=== PATIENT | female | born 1945 | race Caucasian/White ===

== ENCOUNTER 2016-04-11 14:24 | Inpatient (IN) | payer OTHER ==
[~2016-04-11] VITALS: Ht 160 cm; Wt 67.1 kg
[~2016-04-11 14:24] MED LIST: AMLO-218 PO; ASPI-664 PO; BENA40TA41 PO; FAMO20TA18 PO; GLIP5TAB13 PO; HYDR-3498 PO; LOVA20TA PO; MTF1000T PO; ONDA4TAB35 PO; SITA100T8 PO; TERB250T46 PO
[2016-04-11] MEDS ORDERED: HYDROCODONE/APAP (5/325) TAB PO ONE (16:00)
--- NOTE | 2016-04-11 16:50 | RADRPT ---
PROCEDURE: XR Lumbar Spine. CLINICAL INDICATION: Trauma. Back pain. TECHNIQUE: Three views. AP, lateral and cone-down lateral view of the lumbar spine were obtained. COMPARISON: No prior studies are available for comparison. FINDINGS: There is normal stature of the vertebrae. There is grade 2 anterolisthesis at L5-S1 which may be acute or chronic. There is no lytic or blastic lesion. There are degenerative changes at L5-S1 with disk space narrowing and osteophytes. Vascular calcifications are present consistent with atherosclerosis. Surgical clips are present in the right upper quadrant of the abdomen. IMPRESSION: 1. Grade 2 anterolisthesis at L5-S1 which may be acute or chronic. Clinical correlation advised. 2. Degenerative changes at L5-S1. 3. Atherosclerosis. 4. Prior right upper quadrant abdomen surgery. RPTAT: QQ .Kvng Perez MD, MD Date Time Electronically viewed and signed by .Kvng Perez MD, on 04/11/2016 16:49 .R/
--- NOTE | 2016-04-11 16:50 | RADRPT ---
AMENDMENT: 04/11/2016 4:51:57 PM Kvng Perez MD Correction: There is a possible fracture of the left inferior pubic ramus. PROCEDURE: XR Femur. CLINICAL INDICATION: Trauma. Left leg pain. TECHNIQUE: AP and lateral views of the left femur were performed. COMPARISON: None. FINDINGS: There is no fracture or dislocation. The soft tissues are normal. Articular surfaces are intact. There is no lytic or blastic lesion. There is no radiopaque foreign body. IMPRESSION: 1. Normal images of the left femur. RPTAT: QQ .Kvng Perez MD, MD Date Time Electronically viewed and signed by .Kvng Perez MD, MD on 04/11/2016 16:52 .R/
--- NOTE | 2016-04-11 16:51 | RADRPT ---
PROCEDURE: XR Left Hip. CLINICAL INDICATION: Trauma. Left hip pain. TECHNIQUE: Two views. Frontal and lateral. COMPARISON: No prior studies are available for comparison. FINDINGS: There is a possible fracture of the left inferior pubic ramus. There is no other fracture and there is no dislocation. The soft tissues are normal. Articular surfaces are intact. There is no lytic or blastic lesion. There is no radiopaque foreign body. IMPRESSION: 1. Possible fracture of the left inferior pubic ramus. 2. Otherwise unremarkable images of the left hip. RPTAT: QQ .Kvng Perez MD, Date Time Electronically viewed and signed by .Kvng Perez MD, on 04/11/2016 16:50 .R/
--- NOTE | 2016-04-11 17:54 | RADRPT ---
PROCEDURE: CT brain without contrast CLINICAL INDICATION: Post traumatic headaches TECHNIQUE: A CT of the brain was performed utilizing axial sections from the skull base through th e vertex without contrast. Sagittal and coronal images were also reformatted. The exam CTDIvol = 42. 93 mGy and DLP = 630.20 mGy-cm. COMPARISON: None available FINDINGS: No acute intracranial hemorrhage is identified. There is no mass effect or midline shift. No extra -axial fluid collection is seen. The ventricles and sulci are within normal limits for size and con figuration for the patient's provided age of 70 years and associated generalized appropriate tissue loss. The density of the brain is within normal limits. Cowan-white differentiation is preserved. There is made of bilateral temporomandibular joint degenerative narrowing. The bony calvarium and s kull base are intact without acute osseous abnormality. The mastoid air cells and visualized parana fawad sinuses are clear. RPTAT:HJJR IMPRESSION: 1. Generalized age-appropriate tissue loss without evidence of acute post traumatic intracranial abn ormality. 2. Bilateral temporomandibular joint osteoarthrosis. Physician Allie Date Time Electronically viewed and signed by Physician Allie on 04/11/2016 17:54 /
--- NOTE | 2016-04-11 18:10 | RADRPT ---
PROCEDURE: CT Cervical Spine without contrast. CLINICAL INDICATION: Trauma with neck pain TECHNIQUE: Using a GE ResolutionTubepeed [address] scanner, multiple axial images through the cervical s pine with coronal and sagittal reformats were obtained without contrast. The images were reviewed on a high-resolution PACS workstation. The CTDI vol is 17.92 mGy and the DLP is 315.61 mGy-cm. COMPARISON: No prior studies are available for comparison. FINDINGS: Trace anterolisthesis at C4-5 is seen. The remainder of the cervical lordosis is maintained. There is normal height of the vertebral bodies. Diffuse osteopenia is seen. Multilevel endplate and uncov ertebral osteophytosis is seen. There is no bone destruction or sclerosis. The atlantoaxial joint is intact. There is no acute fracture or subluxation. No prevertebral or paravertebral soft tissue a bnormality is seen. C2-3: Incomplete segmentation of the right posterior aspect of the disk as well as the right posteri or elements is seen. The disk space is otherwise unremarkable. There is no neuroforaminal narrowin g. There is no central canal stenosis. C3-4: The disk space is normal. There is no neuroforaminal narrowing. There is no central canal ana nosis. C4-5: The disk space is normal. Minimal bulging of the posterior annulus is seen. There is no neuro foraminal narrowing. There is no central canal stenosis. C5-6: A 2 mm focal central disk protrusion is seen. The disk height is otherwise normal. There is no neuroforaminal narrowing. There is no central canal stenosis. C6-7: Mild to moderate disk height loss is seen with a posterior disk bulge noted. Mild bilateral foraminal stenosis is seen secondary to uncovertebral osteophytosis, left greater than right. There is no central canal stenosis. C7-T1: The disk space is normal. Minimal left foraminal stenosis is seen secondary to uncovertebral osteophytosis. There is no right neuroforaminal narrowing. There is no central canal stenosis. IMPRESSION: 1. No CT evidence of an acute fracture or subluxation. 2. 2 mm focal central disk protrusion at C5-6. 3. Incomplete segmentation of the posterior aspect of the right posterior C2-3 disk space as well a s the right posterior elements likely congenital in nature. 4. Trace anterolisthesis at C4-5. RPTAT: HPNM Pio Hastings, Physician Date Time Electronically viewed and signed by Pio Hastings, Physician on 04/11/2016 18:10 /
--- NOTE | 2016-04-11 18:13 | RADRPT ---
PROCEDURE: CT pelvis CLINICAL INDICATION: TRAUMA TECHNIQUE: Thin section spiral CT images through the pelvis without contrast. Multiplanar reconst ructions. The CTDIvol is 7.36 mGy and the DLP is 205.98 mGycm. One or more of the following dose red uction techniques were used: automated exposure control, adjustment of the mA and/or kV according to patient size, or use of iterative reconstruction technique. COMPARISON: X-rays from today FINDINGS: There are fractures of the left superior and inferior pubic rami, minimally distracted. There is al so a fracture of the left superior sacrum without definite extension to a sacral shade. No other fra ctures are seen. Sclerosis of the sacroiliac joints is seen suggesting sacroiliitis. Old bilateral L5 pars defects are seen with well corticated margins. Grade 2 anterolisthesis of L5-S1 with disk space narrowing and vacuum disk phenomena. Atherosclerotic vascular calcification is seen. The [place] and adnexa are unremarkable in appearance. Moderate rectal stool. There is some hematoma of th e left adductor musculature adjacent to the fractures. Sigmoid diverticulosis. IMPRESSION: Fractures of the left superior and inferior pubic rami and left sacrum. Old bilateral L5 pars defec ts with grade 2 anterolisthesis. RPTAT: [facility]BE Physician Latisha Date Time Electronically viewed and signed by Physician Latisha on 04/11/2016 18:12 LE/
[2016-04-11] MEDS ORDERED: ONDANSETRON 4 MG INJ IV STA (18:51)
[2016-04-11] MEDS ORDERED: morphine 4 MG/ML VIAL IV STA (18:51)
[2016-04-11] MEDS ORDERED: ONDANSETRON 4 MG INJ IV PRN (19:00)
[2016-04-11] MEDS ORDERED: ACETAMINOPHEN 325 MG TAB PO PRN ×2 (19:00→23:00)
[2016-04-11 19:03] LABS: HEMATOCRIT 42.4 % (37.0-47.0); HEMOGLOBIN 14.5 g/dl (12.0-16.0); LYMPHOCYTES # 1.3 10^3/ul (0.8-2.9); LYMPHOCYTES % 7.9 % (15.0-51.0); MEAN CORPUSCULAR HEMOGLOBIN 31.1 pg (29.0-33.0); MEAN CORPUSCULAR HGB CONC 34.1 g/dl (32.0-37.0); MEAN CORPUSCULAR VOLUME 91.1 fl (82.0-101.0); MEAN PLATELET VOLUME 8.4 fl (7.4-10.4); MONOCYTE # 0.9 10^3/ul (0.3-0.9); MONOCYTES % 5.6 % (0.0-11.0); NEUTROPHIL # 14.2 10^3/ul (1.6-7.5); NEUTROPHILS % 86.5 % (39.0-77.0); PLATELET COUNT 282 10^3/UL (140-440); RED BLOOD COUNT 4.65 10^6/ul (4.20-5.40); RED CELL DISTRIBUTION WIDTH 13.1 % (11.5-14.5); UNCORRECTED WBC 16.5 10^3/ul (4.8-10.8); WHITE BLOOD COUNT 16.5 10^3/ul (4.8-10.8)
[2016-04-11 19:06] LABS: CONDITION 1
--- NOTE | 2016-04-11 19:07 | RADRPT ---
PROCEDURE: XR Chest. CLINICAL INDICATION: Shortness of breath. TECHNIQUE: A single portable view of the chest was obtained. COMPARISON: 04/17/2015 FINDINGS: The aorta is tortuous and atherosclerotic. The cardiomediastinal silhouette is otherwise within nor mal limits. The left hemidiaphragm is elevated. The lungs and pleural spaces are otherwise clear. T he soft tissues and osseous structures demonstrate benign age related senescent changes. IMPRESSION: No acute cardiopulmonary disease. Elevated left hemidiaphragm. RPTAT: HPNM Physician Jolly Date Time Electronically viewed and signed by Pio Hastings Physician on 04/11/2016 19:06 /
[2016-04-11 19:16] LABS: POTASSIUM 3.8 mmol/L (3.5-5.1)
[2016-04-11 19:18] LABS: CREATININE 0.7 mg/dl (0.44-1.00)
[2016-04-11 19:19] LABS: CALCIUM 9.3 mg/dl (8.4-10.2); INR 0.96; PROTIME 12.8 Sec (12.2-14.2)
[2016-04-11 20:08] LABS: PARTIAL THROMBOPLASTIN TIME 27.1 Sec (25.0-35.0)
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
[2016-04-11 21:10] VITALS: TEMP 98.8
[2016-04-11 22:30] VITALS: BP 176/79; PULSE 107; RESP 17; Ht 160 cm; Wt 67.1 kg
[2016-04-11] MEDS ORDERED: HYDROCODONE/APAP (10/325) TAB PO PRN (23:00)
[2016-04-11] MEDS ORDERED: DEXTROSE 50% 50 ML SYRINGE IV PRN ×2 (23:15)
[2016-04-11] MEDS ORDERED: GLUCOSE GEL 15 GRAM TUBE BUCCAL PRN (23:15)
[2016-04-11] MEDS ORDERED: GLUCAGON 1 MG INJ IM PRN (23:15)
[2016-04-11] MEDS ORDERED: GLUCOSE GEL 15 GRAM TUBE PO PRN ×2 (23:15)
[2016-04-11] MEDS: morphine 4 MG/ML VIAL IV PRN (23:18)
[2016-04-11 23:25] VITALS: BP 147/71; PULSE 110; RESP 18
[2016-04-12] MEDS ORDERED: ACCUCHECK XX SCH ×2 (02:00→09:50)
[2016-04-12] MEDS: ACCUCHECK XX SCH (02:31)
[2016-04-12] MEDS: INSULIN ASPART [NOVOLOG] 3 ML PEN SC SCH ×4 (07:50→22:01)
[2016-04-12 08:09] VITALS: BP 173/73; RESP 18
[2016-04-12] MEDS: TERBINAFINE 250 MG TAB PO SCH ×2 (08:27→21:58)
[2016-04-12] MEDS: ASPIRIN (EC) 81 MG TAB PO SCH (08:27)
[2016-04-12] MEDS: BENAZEPRIL 40 MG TAB PO SCH (08:28)
[2016-04-12] MEDS: AMLODIPINE 10 MG TAB PO SCH (08:29)
[2016-04-12] MEDS: LINAGLIPTIN 5 MG TABLET PO SCH (08:29)
[2016-04-12] MEDS: FAMOTIDINE 20 MG TAB PO SCH (08:29)
[2016-04-12] MEDS: HEPARIN 5,000 UNIT/0.5 ML SYG SC SCH ×2 (08:34→22:00)
[2016-04-12 09:00] VITALS: BP 133/62; PULSE 79; RESP 18
--- NOTE | 2016-04-12 15:02 | PN ---
Date/Time of Note Date/Time of Note DATE: 04/12/16 TIME: 14:58 Assessment/Plan VTE Prophylaxis VTE Prophylaxis Intervention: LMWH Lines/Catheters IV [facility] [place] [facility] Urinary Cath still in place: No Assessment/Plan Chief Complaint/Hosp Course S- events noted O- vss PE no pallor/droop s1s1 reg; no m/r/g ctab bs+; mild tender; nd; no r/r/g no edema A/P 1. Fractures: Lt superior and inferior pubic rami; and Lt sacrum. 2. Old bilat L5 pars defects w gr2 anterolisthesis. 3. Mech fall; pt/ot soon. snf vs ac rehab 4. Htn/dyslipidemia/metabolic syndrome 5. Dm 6. Djd? OP? Problems: Exam/Review of Systems Vital Signs Vitals Vital Signs Date Time Temp Pulse Resp B/P Pulse Ox O2 Delivery O2 Flow Rate FiO2 04/12/16 09:00 79 18 133/62 98 Room Air 04/12/16 08:09 97.8 Intake and Output 04/11/16 04/11/16 04/12/16 15:00 23:00 07:00 Intake Total 340 ml Output Total 500 ml Balance -160 ml Results Result Diagram: 04/11/16 1844 04/11/16 1844 Results 24 hrs Laboratory Tests Test 04/11/16 18:44 04/11/16 22:50 04/12/16 02:31 04/12/16 08:24 Activated Partial Thromboplast Time 27.1 Anion Gap 15 Basophils # 0.0 Basophils % 0.0 Blood Urea Nitrogen 12 Calcium Level 9.3 Carbon Dioxide Level 27 Chloride Level 102 Creatinine 0.70 Eosinophils # 0.0 Eosinophils % 0.0 Glucose Level 125 Hematocrit 42.4 # Hemoglobin 14.5 # INR International Normalized Ratio 0.96 Lymphocytes # 1.3 Lymphocytes % 7.9 L Mean Corpuscular Hemoglobin 31.1 Mean Corpuscular Hemoglobin Concent 34.1 Mean Corpuscular Volume 91.1 Mean Platelet Volume 8.4 Monocytes # 0.9 Monocytes % 5.6 Neutrophils # 14.2 H Neutrophils % 86.5 H Nucleated Red Blood Cells # 0.0 Nucleated Red Blood Cells % 0.0 Platelet Count 282 Potassium Level 3.8 Prothrombin Time 12.8 Prothrombin Time Ratio 1.0 Red Blood Count 4.65 # Red Cell Distribution Width 13.1 Sodium Level 140 White Blood Count 16.5 #H Hemoglobin A1c 6.7 H Bedside Glucose 191 135 Test 04/12/16 12:12 Bedside Glucose 230 H Medications Medications Current Medications Clonidine (Catapres) 0.1 mg Q4H PRN PO ELEVATED BLOOD PRESSURE; Start 04/11/16 at 23:00 Morphine Sulfate (morphine) 4 mg Q4H PRN IV PAIN Last administered on 23:18; Admin Dose 4 MG; Start 04/11/16 at 23:00 Acetaminophen/ Hydrocodone Bitart ([place] ()) 1 tab Q6H PRN PO PAIN Last administered on 04/12/16 00:16; Admin Dose 1 TAB; Start 04/11/16 at 23:00 Heparin Sodium (Porcine) (Heparin (5000 Units/0.5 ml)) 5,000 unit BID SC Last administered on 04/12/16 08:34; Admin Dose 5,000 UNIT; Start 04/12/16 at 09:00 Acetaminophen (Tylenol Tab) 650 mg Q6H PRN PO PAIN AND OR ELEVATED TEMP; Start 04/11/16 at 23:00 Diagnostic Test (Pha) (Accucheck) 1 ea 02 XX Last administered on 04/12/16 02: 31; Admin Dose 1 EA; Start 04/12/16 at 02:00 Amlodipine Besylate (Norvasc) 10 mg DAILY PO Last administered on 04/12/16 08: 29; Admin Dose 10 MG; Start 04/12/16 at 09:00 Benazepril HCl (Lotensin) 40 mg DAILY PO Last administered on 04/12/16 08:28; Admin Dose 40 MG; Start 04/12/16 at 09:00 Atorvastatin Calcium (Lipitor) 10 mg DAILY@21 PO ; Start 04/12/16 at 21:00 Linagliptin (Tradjenta) 5 mg DAILY PO Last administered on 04/12/16 08:29; Admin Dose 5 MG; Start 04/12/16 at 09:00 Miscellaneous Information 1 ea NOTE XX ; Start 04/11/16 at 23:15 Glucose (Glutose) 15 gm Q15M PRN PO DECREASED GLUCOSE; Start 04/11/16 at 23:15 Glucose (Glutose) 22.5 gm Q15M PRN PO DECREASED GLUCOSE; Start 04/11/16 at 23: 15 Dextrose (D50w Syringe) 25 ml Q15M PRN IV DECREASED GLUCOSE; Start 04/11/16 at 23:15 Dextrose (D50w Syringe) 50 ml Q15M PRN IV DECREASED GLUCOSE; Start 04/11/16 at 23:15 Glucagon (Glucagen) 1 mg Q15M PRN IM DECREASED GLUCOSE; Start 04/11/16 at 23:15 Glucose (Glutose) 15 gm Q15M PRN BUCCAL DECREASED GLUCOSE; Start 04/11/16 at 23 :15 Aspirin (Halfprin) 81 mg DAILY PO Last administered on 04/12/16 08:27; Admin Dose 81 MG; Start 04/12/16 at 09:00 Famotidine (Pepcid) 20 mg DAILY PO Last administered on 04/12/16 08:29; Admin Dose 20 MG; Start 04/12/16 at 09:00 Terbinafine HCl (Lamisil) 250 mg BID PO Last administered on 04/12/16 08:27; Admin Dose 250 MG; Start 04/12/16 at 09:00 DIXON RAMÍREZ MD Apr 12, 2016 15:02
[2016-04-12 19:30] VITALS: BP 129/60; RESP 18
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
[2016-04-12] MEDS: ATORVASTATIN 10 MG TAB PO SCH (21:58)
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
[2016-04-13] MEDS: ACCUCHECK XX SCH (02:11)
[2016-04-13] MEDS: HYDROCODONE/APAP (10/325) TAB PO PRN ×2 (02:13→08:31)
[2016-04-13 05:35] LABS: BASOPHILS % 0.2 % (0.0-2.0); EOSINOPHILS # 0.1 10^3/ul (0.0-0.5); EOSINOPHILS % 0.9 % (0.0-7.0); HEMATOCRIT 36.7 % (37.0-47.0); HEMOGLOBIN 12.4 g/dl (12.0-16.0); LYMPHOCYTES # 2.2 10^3/ul (0.8-2.9); LYMPHOCYTES % 18.7 % (15.0-51.0); MEAN CORPUSCULAR HGB CONC 33.7 g/dl (32.0-37.0); MEAN CORPUSCULAR VOLUME 91.9 fl (82.0-101.0); MEAN PLATELET VOLUME 8.8 fl (7.4-10.4); MONOCYTE # 1.2 10^3/ul (0.3-0.9); MONOCYTES % 10.2 % (0.0-11.0); NEUTROPHIL # 8.1 10^3/ul (1.6-7.5); PLATELET COUNT 209 10^3/UL (140-440); RED BLOOD COUNT 3.99 10^6/ul (4.20-5.40); RED CELL DISTRIBUTION WIDTH 12.6 % (11.5-14.5); UNCORRECTED WBC 11.6 10^3/ul (4.8-10.8); WHITE BLOOD COUNT 11.6 10^3/ul (4.8-10.8)
[2016-04-13 05:41] LABS: CONDITION 1
[2016-04-13 06:02] LABS: INR 1.09; PROTIME 14.1 Sec (12.2-14.2); PT RATIO 1.1
[2016-04-13 06:15] LABS: ALBUMIN 3.3 g/dl (3.3-4.9)
[2016-04-13 06:16] LABS: POTASSIUM 3.8 mmol/L (3.5-5.1)
[2016-04-13 06:18] LABS: ALBUMIN/GLOBULIN RATIO 1.06; BILIRUBIN,INDIRECT 0.6 mg/dl (0-1.1); BILIRUBIN,TOTAL 0.6 mg/dl (0.2-1.3); CREATININE 0.87 mg/dl (0.44-1.00); TOTAL PROTEIN 6.4 g/dl (6.1-8.1)
[2016-04-13 06:19] LABS: CALCIUM 8.4 mg/dl (8.4-10.2); MAGNESIUM 2.1 mg/dl (1.7-2.5); PHOSPHORUS 2.7 mg/dl (2.5-4.9)
[2016-04-13 06:46] LABS: THYROID STIMULATING HORMONE 0.74 MIU/L (0.465-4.680)
[2016-04-13 08:01] VITALS: BP 125/58; RESP 18
[2016-04-13] MEDS: ASPIRIN (EC) 81 MG TAB PO SCH (08:23)
[2016-04-13] MEDS: TERBINAFINE 250 MG TAB PO SCH ×2 (08:24→21:30)
[2016-04-13] MEDS: LINAGLIPTIN 5 MG TABLET PO SCH (08:25)
[2016-04-13] MEDS: FAMOTIDINE 20 MG TAB PO SCH (08:25)
[2016-04-13] MEDS: BENAZEPRIL 40 MG TAB PO SCH (08:25)
[2016-04-13] MEDS: AMLODIPINE 10 MG TAB PO SCH (08:25)
[2016-04-13] MEDS: HEPARIN 5,000 UNIT/0.5 ML SYG SC SCH ×2 (08:29→20:56)
[2016-04-13] MEDS: INSULIN ASPART [NOVOLOG] 3 ML PEN SC SCH ×4 (08:45→20:55)
--- NOTE | 2016-04-13 14:17 | RADRPT ---
PROCEDURE: Pelvis x-ray CLINICAL INDICATION: Status post fall with pelvic fracture. TECHNIQUE: Single AP view of the pelvis performed. COMPARISON: CT scan of the pelvis 04/11/2016 05:51 p.m. FINDINGS: There has been no change in the appearance of the minimally displaced fracture to the inferior ramus of the left side of the pubis since the prior study. There are degenerative osteophytes in the lum bar spine. The innominate bone is intact. The sacrum and SI joints are normal. The hip joints leroy ear bilaterally symmetric with mild degenerative changes noted in the right and left hips and involv ing the SI joints. There is fecal material in the ascending colon descending colon and rectal ampull a. There are benign calcifications in the pelvis which are likely phleboliths. IMPRESSION: 1. Stable position alignment of the minimally displaced fracture to the inferior ramus of the left side of the pubis when compared to the CT pelvis of 04/11/2016. 2. 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 RPTAT:AAJJ Physician Mavis Date Time Electronically viewed and signed by Physician Mavis on 04/13/2016 14:17 /
--- NOTE | 2016-04-13 15:21 | PN ---
Date/Time of Note Date/Time of Note DATE: 04/13/16 TIME: 15:20 Assessment/Plan VTE Prophylaxis VTE Prophylaxis Intervention: LMWH Lines/Catheters IV Catheter Type (from Nrs): Saline Lock Urinary Cath still in place: No Assessment/Plan Chief Complaint/Hosp Course S- 04/12 events noted 04/13- participated w PT (Gait: 4'x2, Mod Assist, FWW, mild instability). post pt xr -ok! O- vss PE no pallor s1s1 reg; no m/r/g ctab bs+; mild tender; nd; no r/r/g no edema A/P 1. Fractures: Lt superior and inferior pubic rami; and Lt sacrum. 2. Old bilat L5 pars defects w gr2 anterolisthesis. 3. Mech fall; pt/ot soon. SNF vs ac rehab 4. Htn/dyslipidemia/metabolic syndrome 5. Dm 6. Djd? OP? Problems: Exam/Review of Systems Vital Signs Vitals Vital Signs Date Time Temp Pulse Resp B/P Pulse Ox O2 Delivery O2 Flow Rate FiO2 04/13/16 08:01 97.8 85 18 125/58 97 04/12/16 09:00 Room Air Intake and Output 04/12/16 04/12/16 04/13/16 15:00 23:00 07:00 Intake Total 600 ml 900 ml Balance 600 ml 900 ml Results Result Diagram: 04/13/16 0450 04/13/16 0450 Results 24 hrs Laboratory Tests Test 04/12/16 17:23 04/12/16 21:53 04/13/16 02:06 04/13/16 04:50 Bedside Glucose 153 202 163 Alanine Aminotransferase (ALT/SGPT) 18 Albumin 3.3 Albumin/Globulin Ratio 1.06 Alkaline Phosphatase 72 Anion Gap 15 Aspartate Amino Transf (AST/SGOT) 23 Basophils # 0.0 Basophils % 0.2 Blood Urea Nitrogen 14 Calcium Level 8.4 Carbon Dioxide Level 26 Chloride Level 102 Creatinine 0.87 Direct Bilirubin 0.00 Eosinophils # 0.1 Eosinophils % 0.9 Globulin 3.10 Glucose Level 168 Hematocrit 36.7 L Hemoglobin 12.4 INR International Normalized Ratio 1.09 Indirect Bilirubin 0.6 Lymphocytes # 2.2 Lymphocytes % 18.7 Magnesium Level 2.1 Mean Corpuscular Hemoglobin 31.0 Mean Corpuscular Hemoglobin Concent 33.7 Mean Corpuscular Volume 91.9 Mean Platelet Volume 8.8 Monocytes # 1.2 H Monocytes % 10.2 Neutrophils # 8.1 H Neutrophils % 70.0 Nucleated Red Blood Cells # 0.0 Nucleated Red Blood Cells % 0.0 Phosphorus Level 2.7 Platelet Count 209 # Potassium Level 3.8 Prothrombin Time 14.1 Prothrombin Time Ratio 1.1 Red Blood Count 3.99 L Red Cell Distribution Width 12.6 Sodium Level 139 Thyroid Stimulating Hormone (TSH) 0.740 Total Bilirubin 0.6 Total Protein 6.4 White Blood Count 11.6 #H Test 04/13/16 08:22 04/13/16 12:13 Bedside Glucose 196 168 Medications Medications Current Medications Clonidine (Catapres) 0.1 mg Q4H PRN PO ELEVATED BLOOD PRESSURE; Start 04/11/16 at 23:00 Morphine Sulfate (morphine) 4 mg Q4H PRN IV PAIN Last administered on 23:18; Admin Dose 4 MG; Start 04/11/16 at 23:00 Heparin Sodium (Porcine) (Heparin (5000 Units/0.5 ml)) 5,000 unit BID SC Last administered on 04/13/16 08:29; Admin Dose 5,000 UNIT; Start 04/12/16 at 09:00 Acetaminophen (Tylenol Tab) 650 mg Q6H PRN PO PAIN AND OR ELEVATED TEMP Last administered on 04/12/16 22:12; Admin Dose 650 MG; Start 04/11/16 at 23:00 Diagnostic Test (Pha) (Accucheck) 1 ea 02 XX Last administered on 04/13/16 02: 11; Admin Dose 1 EA; Start 04/12/16 at 02:00 Amlodipine Besylate (Norvasc) 10 mg DAILY PO Last administered on 04/13/16 08: 25; Admin Dose 10 MG; Start 04/12/16 at 09:00 Benazepril HCl (Lotensin) 40 mg DAILY PO Last administered on 04/13/16 08:25; Admin Dose 40 MG; Start 04/12/16 at 09:00 Atorvastatin Calcium (Lipitor) 10 mg DAILY@21 PO Last administered on 21:58; Admin Dose 10 MG; Start 04/12/16 at 21:00 Linagliptin (Tradjenta) 5 mg DAILY PO Last administered on 04/13/16 08:25; Admin Dose 5 MG; Start 04/12/16 at 09:00 Miscellaneous Information 1 ea NOTE XX ; Start 04/11/16 at 23:15 Glucose (Glutose) 15 gm Q15M PRN PO DECREASED GLUCOSE; Start 04/11/16 at 23:15 Glucose (Glutose) 22.5 gm Q15M PRN PO DECREASED GLUCOSE; Start 04/11/16 at 23: 15 Dextrose (D50w Syringe) 25 ml Q15M PRN IV DECREASED GLUCOSE; Start 04/11/16 at 23:15 Dextrose (D50w Syringe) 50 ml Q15M PRN IV DECREASED GLUCOSE; Start 04/11/16 at 23:15 Glucagon (Glucagen) 1 mg Q15M PRN IM DECREASED GLUCOSE; Start 04/11/16 at 23:15 Glucose (Glutose) 15 gm Q15M PRN BUCCAL DECREASED GLUCOSE; Start 04/11/16 at 23 :15 Aspirin (Halfprin) 81 mg DAILY PO Last administered on 04/13/16 08:23; Admin Dose 81 MG; Start 04/12/16 at 09:00 Famotidine (Pepcid) 20 mg DAILY PO Last administered on 04/13/16 08:25; Admin Dose 20 MG; Start 04/12/16 at 09:00 Terbinafine HCl (Lamisil) 250 mg BID PO Last administered on 04/13/16 08:24; Admin Dose 250 MG; Start 04/12/16 at 09:00 Acetaminophen/ Hydrocodone Bitart ([place] (10/325)) 1 tab Q3H PRN PO PAIN Last administered on 04/13/16 08:31; Admin Dose 1 TAB; Start 04/12/16 at 15:00 Docusate Sodium (Colace) 200 mg HS PO ; Start 04/13/16 at 21:00 DIXON RAMÍREZ MD Apr 13, 2016 15:21
--- NOTE | 2016-04-13 15:22 | PDOCDIS ---
Discharge Instructions DIAGNOSIS Discharge Diagnosis: pelvic & sacral fractures CONDITION Patient Condition: Good ACTIVITY: Activity Restrictions: Slowly Increase Activity Avoid heavy lifting Activity Restrictions Comment: wbat FOLLOW UP/APPOINTMENTS Appointments Dr Garcia 2wks PCP 1wDIXON Baumann MD Apr 13, 2016 15:22
[2016-04-13] MEDS ORDERED: HEP5KI SC (15:29)
[2016-04-13] MEDS ORDERED: DOCU-216 PO (15:29)
[2016-04-13] MEDS ORDERED: ACET325T33 PO (15:29)
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
[2016-04-13 20:07] VITALS: BP 128/59; RESP 20
[2016-04-13] MEDS: ATORVASTATIN 10 MG TAB PO SCH (20:54)
[2016-04-13] MEDS: DOCUSATE SODIUM 100 MG CAP PO SCH (20:54)
[2016-04-13 21:17] VITALS: BP 128/59; RESP 20
[2016-04-14] MEDS: ACCUCHECK XX SCH (02:10)
[2016-04-14 07:27] VITALS: BP 141/63; RESP 15
[2016-04-14] MEDS: FAMOTIDINE 20 MG TAB PO SCH (08:35)
[2016-04-14] MEDS: BENAZEPRIL 40 MG TAB PO SCH (08:35)
[2016-04-14] MEDS: TERBINAFINE 250 MG TAB PO SCH ×2 (08:36→21:26)
[2016-04-14] MEDS: ASPIRIN (EC) 81 MG TAB PO SCH (08:36)
[2016-04-14] MEDS: LINAGLIPTIN 5 MG TABLET PO SCH (08:36)
[2016-04-14] MEDS: AMLODIPINE 10 MG TAB PO SCH (08:36)
[2016-04-14] MEDS: INSULIN ASPART [NOVOLOG] 3 ML PEN SC SCH ×4 (08:41→21:30)
[2016-04-14] MEDS: HEPARIN 5,000 UNIT/0.5 ML SYG SC SCH ×2 (08:54→21:29)
[2016-04-14] MEDS ORDERED: MAGNESIUM HYDROXIDE 30ML CUP PO ONE (14:00)
[2016-04-14 20:00] VITALS: BP 146/65; RESP 18
[2016-04-14] MEDS ORDERED: ENOXAPARIN 40 MG/0.4 ML SYG SC SCH (21:00)
[2016-04-14] MEDS: ATORVASTATIN 10 MG TAB PO SCH (21:26)
[2016-04-14] MEDS: DOCUSATE SODIUM 100 MG CAP PO SCH (21:26)
[2016-04-15] MEDS: ACCUCHECK XX SCH (02:00)
[2016-04-15] MEDS: HYDROCODONE/APAP (10/325) TAB PO PRN (04:54)
[2016-04-15 08:42] VITALS: BP 133/72; PULSE 85; RESP 16
[2016-04-15] MEDS: AMLODIPINE 10 MG TAB PO SCH (08:48)
[2016-04-15] MEDS: BENAZEPRIL 40 MG TAB PO SCH (08:48)
[2016-04-15] MEDS: FAMOTIDINE 20 MG TAB PO SCH (08:48)
[2016-04-15] MEDS: TERBINAFINE 250 MG TAB PO SCH ×2 (08:48→21:15)
[2016-04-15] MEDS: ASPIRIN (EC) 81 MG TAB PO SCH (08:48)
[2016-04-15] MEDS: LINAGLIPTIN 5 MG TABLET PO SCH (08:48)
[2016-04-15] MEDS: INSULIN ASPART [NOVOLOG] 3 ML PEN SC SCH ×4 (08:49→21:27)
[2016-04-15] MEDS: HEPARIN 5,000 UNIT/0.5 ML SYG SC SCH ×2 (08:50→21:18)
--- NOTE | 2016-04-15 12:59 | PN ---
Date/Time of Note Date/Time of Note DATE: 04/15/16 TIME: 12:58 Assessment/Plan VTE Prophylaxis VTE Prophylaxis Intervention: LMWH Lines/Catheters IV Catheter Type (from Nrsg): Saline Lock Urinary Cath still in place: No Assessment/Plan Chief Complaint/Hosp Course S- 04/12 events noted 04/13- participated w PT (Gait: 4'x2, Mod Assist, FWW, mild instability). post pt xr -ok! 219 still here. Pending acute rehab placement versus left. Pain moderate, especially with ambulation O- vss PE no pallor s1s1 reg; no m/r/g ctab bs+; mild tender; nd; no r/r/g no edema A/P 1. Fractures: Lt superior and inferior pubic rami; and Lt sacrum. Stable continue physical therapy. 2. Old bilat L5 pars defects w gr2 anterolisthesis. 3. Mech fall; pt/ot. SNF vs ac rehab 4. Htn/dyslipidemia/metabolic syndrome 5. Dm 6. Djd? OP? Problems: Exam/Review of Systems Vital Signs Vitals Vital Signs Date Time Temp Pulse Resp B/P Pulse Ox O2 Delivery O2 Flow Rate FiO2 04/15/16 08:42 98.2 85 16 133/72 98 Room Air Intake and Output 04/14/16 04/14/16 04/15/16 15:00 23:00 07:00 Intake Total 600 ml 800 ml Balance 600 ml 800 ml Results Result Diagram: 04/13/16 0450 04/13/16 0450 Results 24 hrs Laboratory Tests Test 04/14/16 13:11 04/14/16 17:38 04/14/16 21:25 04/15/16 04:05 Bedside Glucose 107 158 195 204 Test 04/15/16 08:46 Bedside Glucose 211 Medications Medications Current Medications Clonidine (Catapres) 0.1 mg Q4H PRN PO ELEVATED BLOOD PRESSURE; Start 04/11/16 at 23:00 Morphine Sulfate (morphine) 4 mg Q4H PRN IV PAIN Last administered on 23:18; Admin Dose 4 MG; Start 04/11/16 at 23:00 Heparin Sodium (Porcine) (Heparin (5000 Units/0.5 ml)) 5,000 unit BID SC Last administered on 04/15/16 08:50; Admin Dose 5,000 UNIT; Start 04/12/16 at 09:00 Acetaminophen (Tylenol Tab) 650 mg Q6H PRN PO PAIN AND OR ELEVATED TEMP Last administered on 04/12/16 22:12; Admin Dose 650 MG; Start 04/11/16 at 23:00 Diagnostic Test (Pha) (Accucheck) 1 ea 02 XX Last administered on 04/14/16 02: 10; Admin Dose 1 EA; Start 04/12/16 at 02:00 Amlodipine Besylate (Norvasc) 10 mg DAILY PO Last administered on 04/15/16 08: 48; Admin Dose 10 MG; Start 04/12/16 at 09:00 Benazepril HCl (Lotensin) 40 mg DAILY PO Last administered on 04/15/16 08:48; Admin Dose 40 MG; Start 04/12/16 at 09:00 Atorvastatin Calcium (Lipitor) 10 mg DAILY@21 PO Last administered on 21:26; Admin Dose 10 MG; Start 04/12/16 at 21:00 Linagliptin (Tradjenta) 5 mg DAILY PO Last administered on 04/15/16 08:48; Admin Dose 5 MG; Start 04/12/16 at 09:00 Miscellaneous Information 1 ea NOTE XX ; Start 04/11/16 at 23:15 Glucose (Glutose) 15 gm Q15M PRN PO DECREASED GLUCOSE; Start 04/11/16 at 23:15 Glucose (Glutose) 22.5 gm Q15M PRN PO DECREASED GLUCOSE; Start 04/11/16 at 23: 15 Dextrose (D50w Syringe) 25 ml Q15M PRN IV DECREASED GLUCOSE; Start 04/11/16 at 23:15 Dextrose (D50w Syringe) 50 ml Q15M PRN IV DECREASED GLUCOSE; Start 04/11/16 at 23:15 Glucagon (Glucagen) 1 mg Q15M PRN IM DECREASED GLUCOSE; Start 04/11/16 at 23:15 Glucose (Glutose) 15 gm Q15M PRN BUCCAL DECREASED GLUCOSE; Start 04/11/16 at 23 :15 Aspirin (Halfprin) 81 mg DAILY PO Last administered on 04/15/16 08:48; Admin Dose 81 MG; Start 04/12/16 at 09:00 Famotidine (Pepcid) 20 mg DAILY PO Last administered on 04/15/16 08:48; Admin Dose 20 MG; Start 04/12/16 at 09:00 Terbinafine HCl (Lamisil) 250 mg BID PO Last administered on 04/15/16 08:48; Admin Dose 250 MG; Start 04/12/16 at 09:00 Acetaminophen/ Hydrocodone Bitart ([place] (10/325)) 1 tab Q3H PRN PO PAIN Last administered on 04/15/16 04:54; Admin Dose 1 TAB; Start 04/12/16 at 15:00 Docusate Sodium (Colace) 200 mg HS PO Last administered on 04/14/16 21:26; Admin Dose 200 MG; Start 04/13/16 at 21:00 DIXON RAMÍREZ MD Apr 15, 2016 12:59
[2016-04-15 20:34] VITALS: BP 171/72; RESP 20
[2016-04-15] MEDS: DOCUSATE SODIUM 100 MG CAP PO SCH (21:16)
[2016-04-15] MEDS: ATORVASTATIN 10 MG TAB PO SCH (21:17)
[2016-04-15 23:36] VITALS: BP 145/82; PULSE 91; RESP 18
[2016-04-16] MEDS: ACCUCHECK XX SCH (02:00)
[2016-04-16] MEDS: morphine 4 MG/ML VIAL IV PRN ×2 (06:03→06:05)
[2016-04-16] MEDS: HYDROCODONE/APAP (10/325) TAB PO PRN ×3 (06:08→20:21)
[2016-04-16] MEDS: LINAGLIPTIN 5 MG TABLET PO SCH (08:33)
[2016-04-16] MEDS: ASPIRIN (EC) 81 MG TAB PO SCH (08:33)
[2016-04-16] MEDS: FAMOTIDINE 20 MG TAB PO SCH (08:33)
[2016-04-16] MEDS: HEPARIN 5,000 UNIT/0.5 ML SYG SC SCH ×2 (08:35→20:28)
[2016-04-16] MEDS: INSULIN ASPART [NOVOLOG] 3 ML PEN SC SCH ×4 (08:35→20:28)
[2016-04-16] MEDS: BENAZEPRIL 40 MG TAB PO SCH (08:40)
[2016-04-16] MEDS: AMLODIPINE 10 MG TAB PO SCH (08:40)
[2016-04-16] MEDS: TERBINAFINE 250 MG TAB PO SCH ×2 (08:46→20:21)
[2016-04-16 09:01] VITALS: BP 150/60; RESP 18
[2016-04-16] MEDS ORDERED: DIPHENHYDRAMINE 25 MG CAP PO PRN (12:00)
[2016-04-16] MEDS: DIPHENHYDRAMINE 1%/ZINC 28.3 GM CR TOP PRN (17:57)
[2016-04-16 19:21] VITALS: BP 134/60; RESP 18
[2016-04-16] MEDS: ATORVASTATIN 10 MG TAB PO SCH (20:21)
[2016-04-16] MEDS: DOCUSATE SODIUM 100 MG CAP PO SCH (20:21)
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
[2016-04-17] MEDS: ACCUCHECK XX SCH (02:12)
[2016-04-17] MEDS: HYDROCODONE/APAP (10/325) TAB PO PRN ×3 (04:26→16:49)
[2016-04-17] MEDS: DIPHENHYDRAMINE 1%/ZINC 28.3 GM CR TOP PRN (07:05)
[2016-04-17 08:27] VITALS: BP 130/70; RESP 18
[2016-04-17] MEDS: TERBINAFINE 250 MG TAB PO SCH (08:36)
[2016-04-17] MEDS: BENAZEPRIL 40 MG TAB PO SCH (08:36)
[2016-04-17] MEDS: ASPIRIN (EC) 81 MG TAB PO SCH (08:36)
[2016-04-17] MEDS: AMLODIPINE 10 MG TAB PO SCH (08:36)
[2016-04-17] MEDS: FAMOTIDINE 20 MG TAB PO SCH (08:36)
[2016-04-17] MEDS: LINAGLIPTIN 5 MG TABLET PO SCH (08:36)
[2016-04-17] MEDS: HEPARIN 5,000 UNIT/0.5 ML SYG SC SCH (08:43)
[2016-04-17] MEDS: INSULIN ASPART [NOVOLOG] 3 ML PEN SC SCH ×3 (08:44→17:55)
[2016-04-17] MEDS ORDERED: DOCUSATE SODIUM 100 MG CAP PO PRN (10:30)
[2016-04-17] MEDS ORDERED: DOCUSATE SODIUM 100 MG CAP PO ONE (10:30)
--- NOTE | 2016-04-17 11:04 | PN ---
Date/Time of Note Date/Time of Note DATE: 04/17/16 TIME: 11:02 Assessment/Plan VTE Prophylaxis VTE Prophylaxis Intervention: other Lines/Catheters IV Catheter Type (from [facility]): Saline Lock Urinary Cath still in place: No Assessment/Plan Chief Complaint/Hosp Course Assessment and plan 1. Left superior inferior pubic ramus fracture, nondisplaced. 2. Left sacral fracture. 3. 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 4. Mechanical fall. 5. Deconditioning. 6. Diabetes mellitus. 7. Dyslipidemia. 8. Hypertension. 9. Likely degenerative joint disease, possible osteoporosis. 10. History of tobacco abuse. Plan to transfer to senior care facility when accepted Problems: Subjective 24 Hr Interval Summary Free Text/Dictation Patient complains of having constipation with no bowel movement 2 days Denies of any shortness of breath or chest pain The upper back rash has improved significantly Exam/Review of Systems Vital Signs Vitals Vital Signs Date Time Temp Pulse Resp B/P Pulse Ox O2 Delivery O2 Flow Rate FiO2 04/17/16 08:27 98.1 90 18 130/70 95 04/15/16 23:36 Room Air Intake and Output 04/16/16 04/16/16 04/17/16 15:00 23:00 07:00 Intake Total 880 ml 460 ml Output Total 700 ml Balance 180 ml 460 ml Exam General: The patient is well-developed, Not in acute distress. HEENT: Atraumatic, normocephalic. The pupils are equal and round . Neck: Supple with full range of motion. Chest: Normal expansion of the thorax during inspiration, improvement in posterior thoracic rash Lungs: Clear to auscultation bilaterally Heart: Normal S1-S2, Regular rhythm and rate. Abdomen: Soft , nontender, nondistended , bowel sounds are present. Extremities: Decreased range of motion in bilateral lower extremities secondary to pain, no edema no cyanosis Neurologic: Normal mental status,The patient is awake, alert and oriented . Results Result Diagram: 04/13/160 04/13/16449 Results 24 hrs Laboratory Tests Test 04/16/16 12:42 04/16/16 17:27 04/16/16 20:25 04/17/16 02:09 Bedside Glucose 226 H 123 207 140 Test 04/17/16 08:35 Bedside Glucose 234 H Medications Medications Current Medications Clonidine (Catapres) 0.1 mg Q4H PRN PO ELEVATED BLOOD PRESSURE; Start 04/11/16 at 23:00 Morphine Sulfate (morphine) 4 mg Q4H PRN IV PAIN Last administered on 06:03; Admin Dose 4 MG; Start 04/11/16 at 23:00 Heparin Sodium (Porcine) (Heparin (5000 Units/0.5 ml)) 5,000 unit BID SC Last administered on 04/17/16 08:43; Admin Dose 5,000 UNIT; Start 04/12/16 at 09:00 Acetaminophen (Tylenol Tab) 650 mg Q6H PRN PO PAIN AND OR ELEVATED TEMP Last administered on 04/12/16 22:12; Admin Dose 650 MG; Start 04/11/16 at 23:00 Diagnostic Test (Pha) (Accucheck) 1 ea 02 XX Last administered on 04/17/16 02: 12; Admin Dose 1 EA; Start 04/12/16 at 02:00 Amlodipine Besylate (Norvasc) 10 mg DAILY PO Last administered on 04/17/16 08: 36; Admin Dose 10 MG; Start 04/12/16 at 09:00 Benazepril HCl (Lotensin) 40 mg DAILY PO Last administered on 04/17/16 08:36; Admin Dose 40 MG; Start 04/12/16 at 09:00 Atorvastatin Calcium (Lipitor) 10 mg DAILY@21 PO Last administered on 20:21; Admin Dose 10 MG; Start 04/12/16 at 21:00 Linagliptin (Tradjenta) 5 mg DAILY PO Last administered on 04/17/16 08:36; Admin Dose 5 MG; Start 04/12/16 at 09:00 Miscellaneous Information 1 ea NOTE XX ; Start 04/11/16 at 23:15 Glucose (Glutose) 15 gm Q15M PRN PO DECREASED GLUCOSE; Start 04/11/16 at 23:15 Glucose (Glutose) 22.5 gm Q15M PRN PO DECREASED GLUCOSE; Start 04/11/16 at 23: 15 Dextrose (D50w Syringe) 25 ml Q15M PRN IV DECREASED GLUCOSE; Start 04/11/16 at 23:15 Dextrose (D50w Syringe) 50 ml Q15M PRN IV DECREASED GLUCOSE; Start 04/11/16 at 23:15 Glucagon (Glucagen) 1 mg Q15M PRN IM DECREASED GLUCOSE; Start 04/11/16 at 23:15 Glucose (Glutose) 15 gm Q15M PRN BUCCAL DECREASED GLUCOSE; Start 04/11/16 at 23 :15 Aspirin (Halfprin) 81 mg DAILY PO Last administered on 04/17/16 08:36; Admin Dose 81 MG; Start 04/12/16 at 09:00 Famotidine (Pepcid) 20 mg DAILY PO Last administered on 04/17/16 08:36; Admin Dose 20 MG; Start 04/12/16 at 09:00 Terbinafine HCl (Lamisil) 250 mg BID PO Last administered on 04/17/16 08:36; Admin Dose 250 MG; Start 04/12/16 at 09:00 Acetaminophen/ Hydrocodone Bitart (Coyote (10/325)) 1 tab Q3H PRN PO PAIN Last administered on 04/17/16 04:26; Admin Dose 1 TAB; Start 04/12/16 at 15:00 Docusate Sodium (Colace) 200 mg HS PO Last administered on 04/16/16 20:21; Admin Dose 200 MG; Start 04/13/16 at 21:00 Diphenhydramine/ Zinc Oxide (Benadryl 1% Cr) 1 applic Q6H PRN TOP ITCHING Last administered on 04/17/16 07:05; Admin Dose 1 APPLIC; Start 04/16/16 at 12:30 Diphenhydramine HCl (Benadryl) 25 mg Q6H PRN PO ITCHING; Start 04/16/16 at 12: 00 Docusate Sodium (Colace) 100 mg DAILY PRN PO CONSTIPATION; Start 04/17/16 at 10 :30 KIKO ROCA MD Apr 17, 2016 11:04
== END 2016-04-17 17:50 | DRG 536 ==
LOC: FTE 14:24 → MS1 21:59
PROVIDERS: ADMIT Internal Medicine; ATTEND Internal Medicine
DX: S32.592A Other specified fracture of left pubis, initial encounter for closed fracture (principal); S32.10XA Unspecified fracture of sacrum, initial encounter for closed fracture; E11.9 Type 2 diabetes mellitus without complications; E78.5 Hyperlipidemia, unspecified; I10 Essential (primary) hypertension; V49.9XXA Car occupant (driver) (passenger) injured in unspecified traffic accident, initial encounter; Y92.410 Unspecified street and highway as the place of occurrence of the external cause
CPT/HCPCS: 36415; 70450; 71010; 72100; 72125; 72170; 72192; 73510; 73550; 80048; 80053; 82306; 82962; 83036; 83735; 84100; 84443; 85025; 85610; 85730; 93005; 96374; 96375; 97110; 97116; 97162; 97530; J1815; J2270; J2405

== ENCOUNTER 2017-11-07 06:13 | Day surgery (SDC) | END 2017-11-07 15:23 | disposition home or self-care (01) ==